=== PATIENT | male | born 1980 | race Caucasian/White ===

== ENCOUNTER 2017-07-22 17:47 | Emergency (ER) | payer SELFPAY ==
[2017-07-22 17:59] VITALS: BP 149/67
[2017-07-22] MEDS ORDERED: XYLOCAINE TOPICAL 2% 5ML TP ONE (18:07)
== END 2017-07-22 21:05 | disposition left against medical advice (07) ==
LOC: ED 17:47
DX: K64.9 Unspecified hemorrhoids (principal); Z53.21 Procedure and treatment not carried out due to patient leaving prior to being seen by health care provider